=== PATIENT | male | born 1980 | race Caucasian/White ===

== ENCOUNTER 2024-05-09 11:40 | Emergency (ER) | payer MEDICAID ==
[~2024-05-09] VITALS: Ht 180.3 cm; Wt 86.2 kg
[2024-05-09 11:54] VITALS: BP 128/72; TEMP 99.1; O2SAT 98
[2024-05-09] MEDS ORDERED: oxyCODONE/APAP (5/325 MG) 1 UDTAB TABLET ONE (12:33)
[2024-05-09] MEDS: oxyCODONE/APAP (5/325 MG) 1 UDTAB TABLET PO ONE (12:35)
[2024-05-09] MEDS ORDERED: OXYC-128 PO (13:46)
== END 2024-05-09 14:08 | disposition home or self-care (01) ==
LOC: ER 11:50
DX: S40.011A Contusion of right shoulder, initial encounter (principal); R10.9 Unspecified abdominal pain; M54.9 Dorsalgia, unspecified; Z88.2 Allergy status to sulfonamides; Z88.1 Allergy status to other antibiotic agents; V89.0XXA Person injured in unspecified motor-vehicle accident, nontraffic, initial encounter; Y93.89 Activity, other specified; Y92.89 Other specified places as the place of occurrence of the external cause; Y99.8 Other external cause status
CPT/HCPCS: 71100-TC; 73030-TC